=== PATIENT | female | born 1985 | race Caucasian/White ===

== ENCOUNTER 2019-07-25 16:51 | Emergency (ER) | payer BC ==
[2019-07-25] MEDS ORDERED: Sodium Chloride 0.9% 1,000 ML IV SCH (19:00)
--- NOTE | 2019-07-25 19:14 | EDM.PDOC ---
ED HPI GENERAL MEDICAL PROBLEM - General Chief Complaint: General Stated Complaint: DEHYDRATED Time Seen by Provider: 07/25/19 18:50 Source of Information: Reports: Patient History Limitations: Reports: No Limitations - History of Present Illness INITIAL COMMENTS - FREE TEXT/NARRATIVE: 34-year-old female came in with generalized malaise, weakness, after walking in the heat and humidity for over an hour. She was trying to stay hydrated but when she arrived she felt like she was going to faint so they tried to "cool her down". They recommended she come in for fluids and be evaluated for "heat stroke". She has no headache, no confusion, and arrived without a fever. Onset: Gradual Duration: Hour(s): (Developed over the last 2-3 hours) Associated Symptoms: Reports: Diaphoresis, Malaise, Weakness. Denies: Confusion , Chest Pain, Cough - Related Data Allergies Allergy/AdvReac Type Severity Reaction Status Date / Time amoxicillin Allergy Hives Verified 07/25/19 18:32 cefaclor [From Ceclor] Allergy Vomiting Verified 07/25/19 18:32 Penicillins Allergy Anaphylactic Verified 07/25/19 18:32 Shock Sulfa (Sulfonamide Allergy Rash Verified 07/25/19 18:32 Antibiotics) Home Meds: Home Meds Escitalopram [Lexapro] 20 mg PO DAILY 07/25/19 [History] Methylphenidate [Ritalin] 20 mg PO DAILY 07/25/19 [History] Pramipexole [Mirapex] 0.125 mg PO BEDTIME 07/25/19 [History] Propranolol [Inderal] 80 mg PO DAILY 07/25/19 [History] Past Medical History Cardiovascular History: Reports: Hypertension Respiratory History: Reports: Asthma, Other (See Below) Other Respiratory History: exercise induced Musculoskeletal History: Reports: Other (See Below) Other Musculoskeletal History: restless legs Psychiatric History: Reports: Depression - Past Surgical History GI Surgical History: Reports: Cholecystectomy Social & Family History - Tobacco Use Smoking Status *Q: Never Smoker - Recreational Drug Use Recreational Drug Use: No ED ROS GENERAL - Review of Systems Review Of Systems: See Below Constitutional: Reports: Chills, Malaise. Denies: Fever HEENT: Reports: No Symptoms Respiratory: Denies: Shortness of Breath, Cough Cardiovascular: Denies: Chest Pain GI/Abdominal: Reports: Nausea. Denies: Abdominal Pain, Vomiting : Reports: No Symptoms Skin: Reports: Diaphoresis Neurological: Reports: Weakness. Denies: Headache ED EXAM, GENERAL - Physical Exam Exam: See Below Exam Limited By: No Limitations General Appearance: Alert, No Apparent Distress Eye Exam: Bilateral Eye: Normal Inspection Head: Atraumatic Respiratory/Chest: No Respiratory Distress, Lungs Clear Cardiovascular: Regular Rate, Rhythm GI/Abdominal: Non-Tender Extremities: Normal Inspection Neurological: Alert, Oriented, No Motor/Sensory Deficits Psychiatric: Normal Affect, Normal Mood Skin Exam: Warm, Dry Course - Vital Signs Last Recorded V/S: Last Vital Signs Temp 96.2 F 07/25/19 18:35 Pulse 79 07/25/19 18:35 Resp 12 07/25/19 18:35 BP 129/93 H 07/25/19 18:35 Pulse Ox 97 07/25/19 18:35 - Orders/Labs/Meds Labs: Laboratory Tests 07/25/19 07/25/19 Range/Units 19:08 19:08 WBC 14.9 H (4.5-11.0) K/uL RBC 5.08 (3.30-5.50) M/uL Hgb 14.4 (12.0-15.0) g/dL Hct 42.6 (36.0-48.0) % MCV 84 (80-98) fL MCH 28 (27-31) pg MCHC 34 (32-36) % Plt Count 316 (150-400) K/uL Neut % (Auto) 67 H (36-66) % Lymph % (Auto) 24 (24-44) % [place] % (Auto) 8 H (2-6) % Eos % (Auto) 1 L (2-4) % Baso % (Auto) 0 (0-1) % Sodium 138 L (140-148) mmol/L Potassium 3.1 L (3.6-5.2) mmol/L Chloride 102 (100-108) mmol/L Carbon Dioxide 26 (21-32) mmol/L Anion Gap 13.1 (5.0-14.0) mmol/L BUN 14 (7-18) mg/dL Creatinine 1.0 (0.6-1.0) mg/dL Est Cr Clr Drug Dosing 75.61 mL/min Estimated GFR (MDRD) > 60 (>60) Glucose 99 (74-106) mg/dL Calcium 9.7 (8.5-10.1) mg/dL Meds: Medications Discontinued Medications Generic Name Dose Route Start Last Admin Trade Name Henrik PRN Reason Stop Dose Admin Sodium Chloride 1,000 mls @ 1,000 mls/hr 07/25/19 19:00 07/25/19 19:11 Normal Saline IV 1,000 mls/hr ASDIRECTED [facility] Administration - Re-Assessments/Exams Free Text/Narrative Re-Assessment/Exam: 07/25/19 19:15 Patient was reassured that this is not "heat stroke" but possibly heat exhaustion. She will be given a liter of normal saline and we'll check her electrolytes and CBC but she should do fine. 07/25/19 19:47 Patient tolerated the fluids well, vitals remained stable and labs were reassuring other than a mildly elevated white count and potassium of 3.1. She was encouraged to supplement potassium for the next few days and increase activity as tolerated. Departure - Departure Time of Disposition: 20:27 Disposition: Home, Self-Care 01 Condition: Good Clinical Impression: Heat exhaustion Qualifiers: Encounter type: initial encounter Qualified Code(s): T67.5XXA - Heat exhaustion , unspecified, initial encounter - Discharge Information Instructions: Heat Exhaustion Information Referrals: PCP,None [Primary Care Provider] - Forms: ED Department Discharge Care Plan Goals: Continue fluids, potassium supplementation is important, and increase diet and activity as tolerated. Recheck in 2-3 days if not improving satisfactorily. Return anytime if worsening or concerns.
== END 2019-07-25 20:29 | disposition home or self-care (01) ==
LOC: JP.ED 16:51
DX: T67.5XXA Heat exhaustion, unspecified, initial encounter (principal); I10 Essential (primary) hypertension; F32.9 Major depressive disorder, single episode, unspecified; Z88.1 Allergy status to other antibiotic agents; Z88.2 Allergy status to sulfonamides; Z79.899 Other long term (current) drug therapy; Z90.49 Acquired absence of other specified parts of digestive tract
CPT/HCPCS: 36415; 80048; 85025; 96360; 99284; J7030